=== PATIENT | female | born 1975 ===

== ENCOUNTER 2017-07-09 21:25 | Emergency (ER) | payer OTHER ==
[~2017-07-09] VITALS: Ht 172.7 cm; Wt 61.2 kg
[2017-07-09] MEDS ORDERED: HYDR1TAB94 PO (22:41)
[2017-07-09] MEDS ORDERED: Flonase 0.05% N16 GM (23:57)
== END 2017-07-09 23:58 | disposition home or self-care (01) ==
LOC: ER 21:25
DX: S82.832A Other fracture of upper and lower end of left fibula, initial encounter for closed fracture (principal); Z79.899 Other long term (current) drug therapy; X50.1XXA Overexertion from prolonged static or awkward postures, initial encounter
CPT/HCPCS: 29505; 73610; 73630; 99283